=== PATIENT | female | born 1955 | race Two or more races ===

== ENCOUNTER 2017-08-10 05:27 | Emergency (ER) | payer BC, OTHER ==
[~2017-08-10] VITALS: Ht 170.2 cm; Wt 61.2 kg
--- NOTE | 2017-08-10 05:30 | NUR ---
TO BED 5 A 62 YO FEMALE PATIENT BB RA99 FROM HOME. PER EMS, SYNCOPE x2 TONIGHT. N/V/D SINCE 0200 THIS AM. PATIENT IS AAOX3, NAD NOTED. VSS. NONDIAPHOREITC. GOWNED. COMFORT MEASURES RENDERED. ONGOING VS MONITORING. AT BEDSIDE.
[2017-08-10] MEDS ORDERED: SIMV10TA6 PO (05:44)
[2017-08-10] MEDS ORDERED: IV NS 0.9% 500 ML BAG IV ONE (06:00)
--- NOTE | 2017-08-10 06:05 | NUR ---
Dr Christianson at bedside to eval.
--- NOTE | 2017-08-10 06:10 | NUR ---
cxr at bedside.
[2017-08-10 06:21] LABS: BASOPHILS % (AUTO) 0.1 % (0.0-2.0); EOSINOPHILS % (AUTO) 0.1 % (0.0-6.0); HEMATOCRIT 42 % (33-45); LYMPHOCYTES % (AUTO) 6.1 % (20.0-44.0); MEAN CORPUSCULAR HEMOGLOBIN 31 PG (26.0-33.0); MEAN CORPUSCULAR HGB CONC 33 g/dl (31.0-36.0); MEAN CORPUSCULAR VOLUME 94 fL (82-100); MONOCYTES # (AUTO) 0.7 /CMM (0.1-1.30); MONOCYTES % (AUTO) 4.4 % (2.0-12.0); NEUTROPHILS % (AUTO) 89.3 % (43.0-81.0); PLATELET COUNT (AUTO) 223 /CMM (150-450); RDW COEFFICIENT OF VARIATION 14.2 (11.5-15.0); WHITE BLOOD COUNT (AUTO) 15.7 K/uL (4.3-11.0)
[2017-08-10] MEDS ORDERED: ONDANSETRON HCL/PF 4 MG/2 ML VIAL IVP ONE (06:30)
[2017-08-10] MEDS ORDERED: IV NS 0.9% 1,000 ML BAG IV ONE (06:30)
--- NOTE | 2017-08-10 06:34 | NUR ---
back from radiology.
[2017-08-10] MEDS ORDERED: ONDANSETRON HCL/PF 4 MG/2 ML VIAL ONE (06:35)
[2017-08-10 06:40] LABS: INR 0.99 (0.87-1.13); PROTHROMBIN TIME 10.3 SECS (9.5-12.7)
[2017-08-10 06:47] LABS: CALCIUM, SERUM 9.3 mg/dL (8.5-10.1); CARBON DIOXIDE 26 mmol/L (21-32); CHLORIDE 105 mmol/L (98-107); GLUCOSE 139 mg/dL (74-106); POTASSIUM 3.9 mmol/L (3.5-5.1); SODIUM SERUM 138 mmol/L (136-145); UREA NITROGEN, BLOOD 17 mg/dL (7-18)
[2017-08-10 06:56] LABS: TROPONIN I < 0.017 ng/mL (0.00-0.056)
--- NOTE | 2017-08-10 07:15 | NUR ---
RECEIVED REPORT FROM KIM JOHNSON FOR BRITTANIE.
--- NOTE | 2017-08-10 08:05 | NUR ---
IV removed. Catheter intact and site benign. Pressure and 4x4 applied to site. No bleeding noted. Patient discharged to home in stable condition. Written and verbal after care instructions given. Patient verbalizes understanding of instruction.
[2017-08-10 08:06] VITALS: BP 114/54
== END 2017-08-10 08:07 | disposition home or self-care (01) ==
LOC: ER 05:29
DX: R11.2 Nausea with vomiting, unspecified (principal); R19.7 Diarrhea, unspecified; E78.00 Pure hypercholesterolemia, unspecified; K44.9 Diaphragmatic hernia without obstruction or gangrene; K57.30 Diverticulosis of large intestine without perforation or abscess without bleeding; Z91.013 Allergy to seafood; Z98.890 Other specified postprocedural states
CPT/HCPCS: 36415; 71010; 74176; 80048; 84484; 85025; 85730; 96361; 96374; 99285; A4606; J2405; J7030; J7040; Z7610